=== PATIENT | female | born 1935 | race Caucasian/White ===

== ENCOUNTER → 2020-10-14 | Outpatient (CLI) | payer OTHER ==
[~2020-10-14] MED LIST: AMOXICILLI250 MG/5 M PO; AMOXICILLIN125 MG PO; AMOXICILLIN250 MG PO; ASPIR 8181 MG PO; ATORVASTATIN CA20 MG PO; CALCIUM600 MG PO; COVID-19 VACC, MRNA(MODERNA)/PF 100 MCG/0.5 ML VIAL IM ONE; DIOVAN80 MG PO; HYDROCHLOROTHIA25 MG PO; LEVOTHYROXINE50 MCG PO; PROAIR HFA INH8.5 GM INH; TOPROL XL50 MG PO; ZETIA10 MG PO; ZYRTEC10 M3 PO
== END ==
LOC: VACCPMC 17:00
DX: Z23 Encounter for immunization (principal); Z20.822 Contact with and (suspected) exposure to COVID-19

== ENCOUNTER → 2020-11-12 | Outpatient (CLI) | payer OTHER | END | DRG 951 | LOC: VACCPMC 09:13 | DX: Z23 Encounter for immunization (principal); Z20.822 Contact with and (suspected) exposure to COVID-19 | CPT/HCPCS: 0012A; 91301 ==